=== PATIENT | female | born 1970 | race Caucasian/White ===

== ENCOUNTER 2022-09-06 07:21 | Day surgery (SDC) | payer MEDICARE, BC ==
[~2022-09-06 07:21] MED LIST: Dextrose 5%-0.45% NaCl 1,000 ML IV SCH; Sodium Chloride 0.9% 10 ML Syringe FLUSH PRN; Sodium Chloride 0.9% 10 ML Syringe FLUSH SCH
[2022-09-06] MEDS ORDERED: Propofol 200 MG/20 ML SDV ONE (07:34)
== END 2022-09-06 11:12 | disposition home or self-care (01) ==
LOC: DL.ENDO 07:21
PROVIDERS: ATTEND Internal Medicine Gastroenterology
DX: Z12.11 Encounter for screening for malignant neoplasm of colon (principal); E03.9 Hypothyroidism, unspecified; E11.9 Type 2 diabetes mellitus without complications; E78.00 Pure hypercholesterolemia, unspecified; N32.81 Overactive bladder; G47.10 Hypersomnia, unspecified; F41.1 Generalized anxiety disorder; F79 Unspecified intellectual disabilities; J45.909 Unspecified asthma, uncomplicated; E66.09 Other obesity due to excess calories; Z90.710 Acquired absence of both cervix and uterus; Z68.27 Body mass index [BMI] 27.0-27.9, adult; Z79.890 Hormone replacement therapy; Z79.899 Other long term (current) drug therapy; Z79.84 Long term (current) use of oral hypoglycemic drugs; Z88.8 Allergy status to other drugs, medicaments and biological substances
CPT/HCPCS: G0121; J7042